=== PATIENT | female | born 1970 | race Caucasian/White ===

== ENCOUNTER 2024-09-02 14:38 | Outpatient (REF) | payer OTHER, SELFPAY ==
--- NOTE | ~2024-09-02 | XR_ITS ---
EXAMINATION: XR LUMBAR SPINE 2-3 VIEWS HISTORY: right low back pain COMPARISON: There are no prior studies for comparison. FINDINGS: AP, lateral, and coned down views of the lumbar spine are submitted. Osseous mineralization is normal. Five nonrib-bearing lumbar vertebral bodies are identified, maintaining normal height and alignment without evidence of fracture or spondylolisthesis. There is mild degenerative disc disease with disc space narrowing and osteophyte formation. The posterior elements are intact. The visualized paraspinal soft tissues are unremarkable. XR/XR lumbar spine 2-3V IMPRESSION: Mild degenerative disc disease. Electronically signed by: Michael Armstrong MD 09/02/2024 03:42 PM EDT
--- NOTE | ~2024-09-02 | US_ITS ---
EXAMINATION: US LOWER EXTREMITY VEINS LIMITED FOLLOW UP RIGHT HISTORY: RT THIGH PAIN COMPARISON: There are no prior studies for comparison. TECHNIQUE: Duplex and color Doppler sonographic examination of the deep venous system of the right lower extremity was performed. FINDINGS: The common femoral, superficial femoral, and popliteal veins are patent demonstrating normal compressibility, spontaneous flow, and augmentation. There is a normal color and spectral Doppler waveform appearance of the visualized deep venous system above the knee. The posterior tibial and peroneal veins are patent. US/US venous duplex LE RT IMPRESSION: No evidence of acute DVT in the right lower extremity. Electronically signed by: Michael Armstrong MD 09/02/2024 03:34 PM EDT
--- OUTSIDE RECORDS SUMMARY | 2024-09-02 14:49 | XMS_ITS | Encounter Summary ---
Author Organization [employer] Address [address] [facility] 7t [place] [address] Care Team Providers Care Coffee Maker Name Role Phone Amando Chapa MD Primary Care Prov ider Reason for Visit * Reason Onset Date Comments Durable Medical Equipment 04/24/2024 Encounter Details Date Type Department Care Team (Late st Contact Info) Description 04/24/2024 Telephone [facility] MEDICINE [address] [place] [address] Amando Chapa MD [address] [place] [address] Durable Medical Equipment Social History Tobacco Use Types Packs/Day Years Used Date Smoking Tobacco: Never Passive Smoke Exposure: Never Smokeless Tobacco: Never Alcohol Use Standard Drinks/Week Comments Never 0 (1 standard drink = 0.6 oz pur e alcohol) Depression Answer Date Recorded Patient Health Questionnaire-9 Score 7 08/09/2022 Housing Stability Answer Date Recorded What is your housing situation today? I have germaine foley 01/17/[address] you li ve. Do you have problems with any of the following? None of the above 01/17/2024 Food Insecurity Answer Date Recorded Within the past 12 months, y ou worried that your food would run out before you got money to buy more: Sometimes True 2023 Within the past 12 months,th e food you bought just didn't last and you didn't have enough money to get more: Sometimes True 01/17/2024 Transportation Answer Date Recorded In the past 12 months, has l ack of transportation kept you from medical appts, meetings, work or from getting things needed for daily living? No 01/17/2024 Utilities Answer Date Recorded In the past 12 months, has t he electric, gas, oil or water company threatened to shut off services in your home? No 01/17/2024 Depression Answer Date Recorded Patient Health Questionnaire-2 Score 6 08/09/2022 Internet Access Answer Date Recorded Internet Access Q1 Yes 01/17/2024 Internet Access Q2 Not on file 01/17/2024 Comments No Sex and Gender Information Value Date Recorded Sex Assigned at Female 02/12/2022 10:34 AM EDT Legal Sex Female 10:34 AM EDT Gender Identity Female 02/12/2022 10:34 AM EDT Sexual Orientation Straight 02/12/2022 10 :34 AM EDT documented as of this encounter Miscellaneous Notes * Telephone Encounter - Romulo Sabas - 04/24/2024 1:43 PM EST Tc from pt requesting Gloves Size: M documented in this encounter Plan of Treatment Upcoming Encounters Date Type Department Care Team (Late st Contact Info) Description 09/16/2024 2:30 PM EDT Clinical Support [facility] MED & PEDS [address] [place] [address] documented as of this encounter Visit Diagnoses Not on filedocumented in this encounter Additional Health Concerns Assessment Noted Time PHQ-9 Depression Total Score: 7 08/10/19 23 10:51 AM EDT documented as of this encounter Care Teams Coffee Maker Relationship Specialty Start Date End Date Amando Chapa MD [address] [place] [address] PCP - General Internal Medicine 09/08/19 documented as of this encounter
--- OUTSIDE RECORDS SUMMARY | 2024-09-02 14:49 | XMS_ITS | Encounter Summary ---
Author Organization [employer] Address [address] [facility] 7 [place] [address] Care Team Providers Care Escort Patients Name Role Phone Amando Chapa MD Primary Care Prov ider Reason for Visit * Reason Comments Med Change Request Encounter Details Date Type Department Care Team ([facility] Contact Info) Description 12/11/2022 Refill [facility] MED & PEDS [address] [place] [address] Amando Chapa MD [address] [place] [address] Social History Tobacco Use Types Packs/Day Years Used Date Smoking Tobacco: Never Passive Smoke Exposure: Never Smokeless Tobacco: Never Alcohol Use Standard Drinks/Week Comments Never 0 (1 standard drink = 0.6 oz pur e alcohol) Depression Answer Date Recorded Patient Health Questionnaire-9 Score 7 08/09/2022 Depression Answer Date Recorded Patient Health Questionnaire-2 Score 6 08/09/2022 Comments No Sex and Gender Information Value Date Recorded Sex Assigned at Female 02/12/2022 10:34 AM EDT Legal Sex Female 10:34 AM EDT Gender Identity Female 02/12/2022 10:34 AM EDT Sexual Orientation Straight 02/12/2022 10 :34 AM EDT documented as of this encounter Miscellaneous Notes * Telephone Encounter - Amando Vu MD - 12/11/2022 2:07 PM EDT done documented in this encounter Plan of Treatment Upcoming Encounters Date Type Department Care Team (Late st Contact Info) Description 09/16/2024 2:30 PM EDT Clinical Support [facility] MED & PEDS [address] [place] [address] documented as of this encounter Visit Diagnoses Not on filedocumented in this encounter Additional Health Concerns Assessment Noted Time PHQ-9 Depression Total Score: 7 08/10/19 23 10:51 AM EDT documented as of this encounter Care Teams Escort Patients Relationship Specialty Start Date End Date Amando Chapa MD [address] [place] [address] PCP - General Internal Medicine 09/08/19 documented as of this encounter
--- OUTSIDE RECORDS SUMMARY | 2024-09-02 14:49 | XMS_ITS | Encounter Summary ---
Author Organization [employer] Address [address] [facility] [address] [place] [address] Care Team Providers Care Indirect Sales Exec Name Role Phone Amando Chapa MD Primary Care Prov ider Reason for Visit * Reason Comments Med Refill Encounter Details Date Type Department Care Team ([facility] Contact Info) Description 10/15/2022 Refill [facility] CHC MED & PEDS [address] [place] [address] Amando Chapa MD [address] [place] [address] Social History Tobacco Use Types Packs/Day Years [...] Orientation Straight 02/12/2022 10 :34 AM EDT COVID-19 Exposure Response Date Recorded In the last 10 days, have yo u been in contact with someone who was confirmed or suspected to have Coronavirus/COVID-19? No / Unsure 09/25/2022 1:01 PM EDT documented as of this encounter Plan of Treatment Upcoming Encounters Date Type Department Care Team (Late st Contact Info) Description 09/16/2024 2:30 PM EDT Clinical Support [facility] CHC MED & PEDS [address] [place] [address] documented as of this encounter Visit Diagnoses Not on filedocumented in this encounter Additional Health Concerns Assessment Noted Time PHQ-9 Depression Total Score: 7 08/10/19 23 10:51 AM EDT documented as of this encounter Care Teams Indirect Sales Exec Relationship Specialty Start Date End Date Amando Chapa MD [address] [place] [address] PCP - General Internal Medicine 09/08/19 documented as of this encounter
--- OUTSIDE RECORDS SUMMARY | 2024-09-02 14:49 | XMS_ITS | Encounter Summary ---
Author Organization [employer] Address [address] [facility] [address]t [place] [address] Care Team Providers Care National Dedicated Truck Driver Name Role Phone Amando Chapa MD Primary Care Prov ider Reason for Visit * Reason Onset Date Comments Created In Error 02/13/2024 Encounter Details Date Type Department Care Team ([facility] st Contact Info) Description 02/13/2024 Telephone [facility] MEDICINE [address] [place] [address] Amando Chapa MD [address] [place] [address] Created In Error Social History Tobacco Use Types Packs/Day Years [...] AM EDT documented as of this encounter Plan of Treatment Upcoming Encounters Date Type Department Care Team (Late st Contact Info) Description 09/16/2024 2:30 PM EDT Clinical Support [facility] CHC MED & PEDS [address] [place] [address] documented as of this encounter Visit Diagnoses Not on filedocumented in this encounter Additional Health Concerns Assessment Noted Time PHQ-9 Depression Total Score: 7 08/10/19 23 10:51 AM EDT documented as of this encounter Care Teams National Dedicated Truck Driver Relationship Specialty Start Date End Date Amando Chapa MD [address] [place] [address] PCP - General Internal Medicine 09/08/19 documented as of this encounter
--- OUTSIDE RECORDS SUMMARY | 2024-09-02 14:49 | XMS_ITS | Encounter Summary ---
Author Organization [employer] Address [address] [facility] [address] [place] [address] Care Team Providers Care Sales Secretary Name Role Phone Amando Chapa MD Primary Care Prov ider Reason for Visit * Reason Onset Date Comments Med Refill 11/15/2023 Encounter Details Date Type Department Care Team (Late st Contact Info) Description 11/15/2023 Telephone [facility] MEDICINE [address] [place] [address] Amando Chapa MD [address] [place] [phone] Med Refill Social History Tobacco Use Types Packs/Day Years Used Date Smoking Tobacco: Never Passive Smoke Exposure: Never Smokeless Tobacco: Never Alcohol Use Standard Drinks/Week Comments Never 0 (1 standard drink = 0.6 oz pur e alcohol) Depression Answer Date Recorded Patient Health Questionnaire-9 Score 7 08/09/2022 Housing Stability Answer Date Recorded What is your housing situation today? I have germaine foley 01/28/[address] you li ve. Do you have problems with any of the following? None of the above 01/28/2023 Food Insecurity Answer Date Recorded Within the past 12 months, y ou worried that your food would run out before you got money to buy more: Never True 01/28/2023 Within the past 12 months,th e food you bought just didn't last and you didn't have enough money to get more: Never True Transportation Answer Date Recorded In the past 12 months, has l ack of transportation kept you from medical appts, meetings, work or from getting things needed for daily living? No 01/28/2023 Utilities Answer Date Recorded In the past 12 months, has t he electric, gas, oil or water company threatened to shut off services in your home? No 01/28/2023 Depression Answer Date Recorded Patient Health Questionnaire-2 Score 6 08/09/2022 Comments No Sex and Gender Information Value Date Recorded Sex Assigned at Female 02/12/2022 10:34 AM EDT Legal Sex Female 10:34 AM EDT Gender Identity Female 02/12/2022 10:34 AM EDT Sexual Orientation Straight 02/12/2022 10 :34 AM EDT documented as of this encounter Miscellaneous Notes * Telephone Encounter - Eduar Martinez - 11/15/2023 12:38 PM EDT Tc from patient requesting status of glucose sensors however rfp writer does not see anything on chart documented in this encounter Plan of Treatment Upcoming Encounters Date Type Department Care Team (Late st Contact Info) Description 09/16/2024 2:30 PM EDT Clinical Support [facility] MED & PEDS [address] [place] [address] documented as of this encounter Visit Diagnoses Not on filedocumented in this encounter Additional Health Concerns Assessment Noted Time PHQ-9 Depression Total Score: 7 08/10/19 23 10:51 AM EDT documented as of this encounter Care Teams Sales Secretary Relationship Specialty Start Date End Date Amando Chapa MD [address] [place] [address] PCP - General Internal Medicine 09/08/19 documented as of this encounter
--- OUTSIDE RECORDS SUMMARY | 2024-09-02 14:49 | XMS_ITS | Encounter Summary ---
Author Organization [employer] Address [address] [facility] 7 [place] [address] Care Team Providers Care Acid Purifier Name Role Phone Amando Chapa MD Primary Care Prov ider Reason for Visit * Reason Onset Date Comments Hospital Follow-up 05/11/2024 Encounter Details Date Type Department Care Team ([facility] st Contact Info) Description 05/11/2024 Telephone [facility] CHC MED & PEDS [address] [place] [address] Amando Chapa MD [address] [place] [address] Hospital Follow-up Social History Tobacco Use Types Packs/Day Years [...] encounter Miscellaneous Notes * Telephone Encounter - Venus Parra - 05/11/2024 11:30 AM EST Tc from pt requesting a HDF appt. [facility]: [facility] Date of admission: 05/09/24 Discharge date: 05/10/24 Diagnosed: asthma attack Pt also states was inform to request oxygen tanks *Send message to [place] Clinical Care Coordinators documented in this encounter Plan of Treatment Upcoming Encounters Date Type Department Care Team (Late st Contact Info) Description 09/16/2024 2:30 PM EDT Clinical Support [facility] CHC MED & PEDS [address] [place] [address] documented as of this encounter Visit Diagnoses Not on filedocumented in this encounter Additional Health Concerns Assessment Noted Time PHQ-9 Depression Total Score: 7 08/10/19 23 10:51 AM EDT documented as of this encounter Care Teams Acid Purifier Relationship Specialty Start Date End Date Amando Chapa MD [address] [place] [address] PCP - General Internal Medicine 09/08/19 documented as of this encounter
--- OUTSIDE RECORDS SUMMARY | 2024-09-02 14:49 | XMS_ITS | Encounter Summary ---
Author Organization [employer] Address [address] [facility] [address] [place] [address] Care Team Providers Care Senior Clinical Study Manager Name Role Phone Amando Chapa MD Primary Care Prov ider Encounter Details Date Type Department Care Team ([facility] st Contact Info) Description 09/28/2022 Orders Only [facility] CHC MED & PEDS [address] [place], [place] [phone] Amando Chapa MD [address] [place] [address] Type 2 diabetes mellitus without complication, with long-term current use of insulin ([facility]) Social History Tobacco Use Types Packs/Day Years [...] Description 09/16/2024 2:30 PM EDT Clinical Support [facility]C MED & PEDS [address] [place] [address] documented as of this encounter Visit Diagnoses Diagnosis Type 2 diabetes mellitus without complication, with long-term current use of insulin ([facility]) documented in this encounter Additional Health Concerns Assessment Noted Time PHQ-9 Depression Total Score: 7 08/10/19 23 10:51 AM EDT documented as of this encounter Care Teams Senior Clinical Study Manager Relationship Specialty Start Date End Date Amando Chapa MD [address] [place] [address] PCP - General Internal Medicine 09/08/19 documented as of this encounter
--- OUTSIDE RECORDS SUMMARY | 2024-09-02 14:49 | XMS_ITS | Clinical Summary ---
Author Organization [facility] Address [address] [place] [address] Phone Care Team Providers Care Verification Lead Name Role Phone Caro Amando Vu Primary Care Provide r Allergies Active Allergy Reactions Criticality Noted Date Comments Aspirin Unknown 07/30/2022 Gent Lydia-Brlnt Grn-Proflav Shortness of breath High 08/27/2022 Iodinated Contrast Media Shortness of breath High Medications acetaminophen (TYLENOL) 500 mg tablet Take 2 tablets (1,000 mg total) by mouth every 12 (twelve) hours if needed for moderate pain. 2 Active albuterol 2.5 mg /3 mL (0.083 %) nebulizer solution Take 3 mL (2.5 mg total) by nebulization every 4 (four) hours if needed for wheezing or shortness of breath. 8 Active albuterol HFA (PROAIR HFA ; PROVENTIL HFA ; VENTOLIN HFA) 90 mcg/actuation inhaler Take 2 puffs by mouth every 4 (four) hours if needed. 2 Active amLODIPine (NORVASC) 10 mg tablet Take 1 tablet (10 mg total) by mouth daily. 4 09/12/19 25 Active budesonide-form oteroL (SYMBICORT) 160-4.5 mcg/actuation inhaler Inhale 2 puffs by mouth 2 times daily. 5 05/07/19 26 Active clopidogreL (PLAVIX) 75 mg tablet Take 1 tablet (75 mg total) by mouth 1 (one) time each day. 4 Active diclofenac (VOLTAREN) 75 mg EC tablet Take 1 tablet (75 mg total) by mouth 2 (two) times a day. 5 Active dulaglutide (TRULICITY) 4.5 mg/0.5 mL pen injector injection Inject 0.5 mL (4.5 mg total) under the skin 1 (one) time per week. 4 Active empagliflozin (JARDIANCE) 25 mg tablet Take 1 tablet (25 mg total) by mouth 1 (one) time each day in the morning. 3 Active NovoLOG Flexpen U-100 Insulin 100 unit/mL (3 mL) injection pen See Instructions, Take based on sliding scale between 4- 14 units via Subcutaneous Injection 3 times a day. E11.9 Max daily dose 42 units., # 30 mL, 6 Refills, Maintenance, 01/04/23 15:50:00 EDT, Solution, [facility], Partial fill upon patie... 3 Active Lantus U-100 Insulin 100 unit/mL injection 15 Units by subdermal route at bedtime. 4 Active lisinopril (PRINIVIL,ZESTR IL) 40 mg tablet Take 1 tablet (40 mg total) by mouth daily. 4 09/12/19 25 Active metFORMIN (GLUCOPHAGE) 1,000 mg tablet Take 1 tablet (1,000 mg total) by mouth every 12 hours. 1 Active rosuvastatin (CRESTOR) 40 mg tablet Take 1 tablet (40 mg total) by mouth daily. 4 09/12/19 25 Active albuterol HFA (ProAir HFA) 90 mcg/actuation inhaler Inhale 2 puffs by mouth every 4 (four) hours if needed for wheezing or shortness of breath. 8.5 g 5 05/10/19 26 Active Active Problems Problem Noted Date Diagnosed Date Asthma exacerbation 05/09/2024 Surgical History Surgery Date Site/Laterality Comments OTHER SURGICAL HISTORY PROCEDURE: MI TOTAL ABDOMINAL HYSTERECT W/WO RMVL TUBE OVARY Medical History Medical History Date Comments Covid-19 DX:COVID-19 Chronic low back pain DX:Chronic low back pain Depression DX:Depression Diabetes ([facility] V24, [facility] V28) DX:Diabetes ([facility]) GERD (gastroesophageal reflux disease) DX:GERD (gastroesophageal reflux disease) Class 1 obesity DX:Class 1 obesi ty Severe persistent asthma ([facility] V28) DX:Severe persistent asthma Family History Medical History Relation Name Comments Asthma Daughter Asthma Father Asthma Mother Breast cancer Mother Relation Name Status Comments Daughter Father Mother Social History Tobacco Use Types Packs/Day Years Used Date Smoking Tobacco: Never Smokeless Tobacco: Never Alcohol Use Standard Drinks/Week Comments Never 0 (1 standard drink = 0.6 oz pur e alcohol) Interpersonal Safety Answer Date Record ed Physical Abuse 05/09/2024 Verbal Abuse 05/09/2024 Comments Unknown Sex and Gender Information Value Date Recorded Sex Assigned at Female 05/09/2024 1:20 PM EST Legal Sex Female 8:25 AM EST Gender Identity Female 05/09/2024 1:20 PM EST Sexual Orientation Straight 05/09/2024 1: 20 PM EST Obstetrics History Last Filed Vital Signs Vital Sign Reading Time Taken Comments Blood Pressure 148/67 05/10/2024 8:01 AM EST Pulse 111 05/10/2024 10:55 AM EST Temperature 36.7 ??C (98.1 ??F) 05/10/2024 8:01 AM ES T Respiratory Rate 20 05/10/2024 10:55 AM EST Oxygen Saturation 94% 05/10/2024 10:55 AM EST Inhaled Oxygen Concentration - - Weight 77.1 kg (170 lb) 05/09/2024 4:15 PM EST Height 160 cm (5' 3 ) 05/09/2024 4:15 PM EST Body Mass Index 30.11 05/09/2024 4:15 PM EST Plan of Treatment Health Maintenance Due Date Last Done Comments Diabetes: Annual Foot Exam 1980 Diabetes: Annual Retina Eye Exam 1980 Cervical Cancer Screening: Pap Smear 06/15/1991 Hepatitis B Vaccines (3 of 3 - 19+ 3-dose series) 03/05/2019 10/08/2018, 09/02/2018 Pneumococcal Vaccine: 50+ Years (2 of 2 - PCV) 04/16/2019 04/16/2018 Pneumococcal Vaccine: Pediatrics (0 to 5 Years) and At-Risk Patients (6 to 64 Years) (2 of 2 - PCV) 04/16/2019 04/16/2018 Zoster Vaccines (1 of 2) 2020 Colorectal Cancer Screening: Colonoscopy 03/23/2022 HIV Screening 03/23/2022 Medicare Annual Wellness Visit 03/23/2022 Social Influencers of Health Screening 03/23/2022 Depression Screening 08/10/2023 08/09/2022 Diabetes: Annual Urine Albumin-Creatinine Ratio (uACR) 08/24/2023 08/23/2022 COVID-19 Vaccine ( - season) 2023 06/01/2021, 05/11/2021 Breast Cancer Screening 08/29/2024 08/29/2022 Diabetes: Blood Sugar Control Test (HGBA1C) 09/22/2024 03/24/2024 Influenza Vaccine (Season Ended) 2024 01/29/2022, 03/31/2021, 02/24/2018 Diabetes: Annual GFR (Glomerular Filtration Rate) 05/10/2025 05/10/2024, 05/09/2024, 03/15/2022, Additional history exists Hypertension/CHF/CAD Annual BMP Blood Test 05/10/2025 05/10/2024, 05/09/2024, 03/15/2022, Additional history exists Cholesterol Screening (Lipid Panel) 08/22/2027 08/21/2022 DTaP,Tdap,and Td Vaccines (2 - Td or Tdap) 04/16/2028 04/16/2018 Hepatitis C Screening Completed 08/21/2022 HIB Vaccines Aged Out No longer eligi ble based on patient's age to complete this topic HPV Vaccines Aged Out No longer eligi ble based on patient's age to complete this topic Hepatitis A Vaccines Aged Out No long er eligible based on patient's age to complete this topic IPV Vaccines Aged Out No longer eligi ble based on patient's age to complete this topic MMR Vaccines Aged Out No longer eligi ble based on patient's age to complete this topic Meningococcal ACWY Vaccine Aged Out N o longer eligible based on patient's age to complete this topic Meningococcal B Vaccine Aged Out No l onger eligible based on patient's age to complete this topic RSV Immunization Patients Under 20 months Aged Out No longer eligible based on patient's age to complete this topic Varicella Vaccines Aged Out No longer eligible based on patient's age to complete this topic Medical Devices Implanted Type Area Reverse Unit Operator Device Identifier Shelf Expiration Date Model / Serial / Lot Device Angio-Seal Vip .035in 70cm 6fr [employer] - [id number] Implanted:11/24 (Quantity not on file) [facility] [id number] / / Procedures Procedure Name Priority Date/Time Associated Diagnosis Comments BASIC METABOLIC PANEL Routine 05/10/2024 5:49 AM EST TASNEEM SCREENING DIGITAL Routine 08/29/2022 5:33 PM EDT Encounter for screening mammogram for malignant neoplasm of breast from Last 3 Months or Most Recently Relevant to Health Maintenance Results * (ABNORMAL) Basic metabolic panel (05/10/2024 5:49 AM EST) Sodium 136 133 - 145 mmol/L LAB CHEMISTRY METHOD 05/10/2024 8:25 AM [facility] Potassium 4.0 3.5 - 5.5 mmol/L LAB CHEMISTRY METHOD 05/10/2024 8:25 AM [facility] Chloride 102 96 - 110 mmol/L LAB CHEMISTRY METHOD 05/10/2024 8:25 AM [facility] CO2 27 21 - 32 mmol/L LAB CHEMISTRY METHOD 05/10/2024 8:25 AM [facility] Anion Gap 7 3 - 11 LAB CHEMISTRY METHOD 05/10/2024 8:25 AM [facility] Glucose 244(H) 70 - 100 mg/dL LAB CHEMISTRY METHOD 05/10/2024 8:25 AM [facility] BUN 18 5 - 25 mg/dL LAB CHEMISTRY METHOD 05/10/2024 8:25 AM [facility] Creatinine 0.68 0.50 - 1.10 mg/dL LAB CHEMISTRY METHOD 05/10/2024 8:25 AM [facility] eGFR 104 >=60 mL/min/1. 73m2 LAB CHEMISTRY METHOD 05/10/2024 8:25 AM EST [facility] Comment:Calculation based on the??Chronic Kidney Disease Epidemiology Collaboration (CKD-EPI) equation refit??without adjustment for race. BUN/Creatinine Ratio 26.5 LAB CHEMISTRY METHOD 05/10/2024 8:25 AM EST [facility] Calcium 9.7 8.5 - 10.5 mg/dL LAB CHEMISTRY METHOD 05/10/2024 8:25 AM EST [facility] Blood Venous blood specimen / Unknown Venipuncture / Unknown 05/10/2024 5:49 AM EST 05/10/2024 7:02 AM EST us [facility] BLOOD ORDERABLES Final Resu lt [facility] [address] [place] [address], * TASNEEM SCREENING DIGITAL (08/29/2022 5:33 PM EDT) Anatomical Region Laterality Modality Mammography 08/29/2022 11:0 4 AM EDT Narrative 08/29/2022 5:33 PM EDT [facility] Diagnostic Imaging Department [address] [place] [address] Patient: ??YUSUF HARRELL ?/Age/Sex: 1970 - Unit#: ??[id number] ? Location/Status: ??SPDIMAM/REG CLI ? Mnemonic/Ordering Site: ??DIGSC/SPMAM Ordering Physician: ??AMANDO DIAMOND MD Tasneem Screening Digital - 08/29/22 - 1135 EXAM: [facility] Screening Digital EXAM DATE AND TIME: 08/29/2022 11:53 AM HISTORY: ??Screening. Baseline exam. Personal history of colon carcinoma. COMPARISON: ??No comparison imaging. TECHNIQUE: CC and MLO views of both breasts were obtained using full field digital mammography. Bilateral digital breast tomosynthesis was performed in the MLO projection. Computer aided detection with Chubbies Shorts 7.2-H and Swatchcloud 3D 3.1 was employed. TISSUE DENSITY: a. The breasts are almost entirely fatty. FINDINGS: A small group of microcalcifications is seen in the middle 1:00 position of the left breast. Spot compression magnification views are recommended for further assessment. No suspicious masses or areas of architectural distortion are seen. Few benign rim calcifications are noted. Vascular calcification is present. The skin is un remarkable. IMPRESSION: 1. Grouped microcalcifications in the left breast, for which additional views are recommended. The patient will be called back. 2. No mammographic evidence of malignancy is seen in the right breast. BI-RADS: ??Category 0: Incomplete - Need Additional Imaging Evaluation RECOMMENDATION(S): 1: Special mammographic view(s) needed LEFT [id number], [id number] 3340F, 7025F Dictating Physician: ??CAROLYN BAEZ MD Electronically Signed by: ??CAROLYN BAEZ MD Dic Date/Time: ??08/29/22 1731 Sign date/Time: ??08/29/22 1733 Procedure Note Carolyn Baez MD - 05/17/2023 [facility] Diagnostic Imaging Department [address] [place] [id number] Patient: YUSUF HARRELLO.B./Age/Sex: 1970 - 52 - F Unit#: [id number] Location/Status: SPDIMAM/REG CLI Mnemonic/Ordering Site: [facility] Ordering Physician: AMANDO DIAMOND MD [facility] Screening Digital - 08/29/22 - 1135 EXAM: [facility] Screening Digital EXAM DATE AND TIME: 08/29/2022 11:53 AM HISTORY: Screening. Baseline exam. Personal history of colon carcinoma. COMPARISON: No comparison imaging. TECHNIQUE: CC and MLO views of both breasts were obtained using fullfield digital mammography. Bilateral digital breast tomosynthesis was performedin the MLO projection. Computer aided detection with Chubbies Shorts 7.2-H andSwatchcloud 3D 3.1 was employed. TISSUE DENSITY: a. The breasts are almost entirely fatty. FINDINGS: A small group of microcalcifications is seen in the middle 1:00 positionof the left breast. Spot compression magnification views are recommended forfurther assessment. No suspicious masses or areas of architectural distortion are seen. Fewbenign rim calcifications are noted. Vascular calcification is present. The skinis un remarkable. IMPRESSION: 1. Grouped microcalcifications in the left breast, for which additionalviews are recommended. The patient will be called back. 2. No mammographic evidence of malignancy is seen in the right breast. BI-RADS: Category 0: Incomplete - Need Additional Imaging Evaluation RECOMMENDATION(S): 1: Special mammographic view(s) needed LEFT [id number], [id number] 3340F, 7025F Dictating Physician: CAROLYN BAEZ MD Electronically Signed by: CAROLYN BAEZ MD Dic Date/Time: 08/29/22 1731 Sign date/Time: 08/29/22 1733 Amando Vu IMG BI PROCEDURES Fin al Result from Last 3 Months or Most Recently Relevant to Health Maintenance Insurance MEDICARE Member Subscriber Plan / Payer (Ef fective 2022-Present) Name:Yusuf Harrell Relation to Subscriber:Self Name:Yusuf Harrell Payer ID:[id number] Group ID:[id number] Type:Not on file Address: [place] [address] [place] [phone] Advance Directives Documents on File Type Date Recorded Patient Cognos Analyst Expl [facility] Health Care Decision (hx) 06/05/2023 AD PRABHAKAR DIRECTIVE * Full Code - Confirmed (Latest Code Status on File) Date Activated Date Inactivated Comments 05/09/2024 6:59 PM 05/10/2024 3:[address] atus was ascertained in the following way: Code status discussion: discussion with patient To update the patient's code status, place a code status order. Do not modify or discontinue any currently active code status orders. * Full Code - Default Date Activated Date Inactivated Comments 05/09/2024 4:32 PM 05/09/2024 6:59 PM This is orde r is used when code status has not been discussed with the patient, or code status is otherwise unknown/unconfirmed To update the patient's code status, place a code status order. Do not modify or discontinue any currently active code status orders. Care Teams Verification Lead Relationship Specialty Start Date End Date Amando Diamond [address], [place] PCP - General Internal Medicine 05/04/21
--- OUTSIDE RECORDS SUMMARY | 2024-09-02 14:49 | XMS_ITS | Encounter Summary ---
Author Organization [employer] Address [address] [facility] 7 [place] [address] Care Team Providers Care Senior Marketing Analyst Name Role Phone Amando Chapa MD Primary Care Prov ider Reason for Visit * Reason Comments Med Refill Encounter Details Date Type Department Care Team ([facility] st Contact Info) Description 12/12/2023 Refill [facility] CH[facility] MED & PEDS [address] [place] [address] Amando Chapa MD [address] [place] [address] Acute pain of left knee Social History Tobacco Use Types Packs/Day Years [...] Description 09/16/2024 2:30 PM EDT Clinical Support [facility] MED & PEDS [address] [place] [address] documented as of this encounter Visit Diagnoses Diagnosis Acute pain of left knee documented in this encounter Additional Health Concerns Assessment Noted Time PHQ-9 Depression Total Score: 7 08/10/19 23 10:51 AM EDT documented as of this encounter Care Teams Senior Marketing Analyst Relationship Specialty Start Date End Date Amando Chapa MD [address] [place] [address] PCP - General Internal Medicine 09/08/19 documented as of this encounter
--- OUTSIDE RECORDS SUMMARY | 2024-09-02 14:49 | XMS_ITS | Encounter Summary ---
Author Organization [employer] Address [address] [facility] 7t [place] [address] Care Team Providers Care Supervisor Drying Name Role Phone Amando Chapa MD Primary Care Prov ider Encounter Details Date Type Department Care Team (Late Contact Info) Description 09/01/2022 Orders Only [facility] CHC MED & PEDS [address] [place], [place] [phone] Amando Chapa MD [address] [place] [address] Social History Tobacco Use Types Packs/Day Years Used Date Smoking Tobacco: Never Passive Smoke Exposure: Never Smokeless Tobacco: Never Alcohol Use Standard Drinks/Week Comments Never 0 (1 standard drink = 0.6 oz pur e alcohol) Depression Answer Date Recorded Patient Health Questionnaire-9 Score 7 08/09/2022 Depression Answer Date Recorded Patient Health Questionnaire-2 Score 6 08/09/2022 Comments Unknown Sex and Gender Information Value [...] suspected to have Coronavirus/COVID-19? No / Unsure 08/27/2022 10:17 AM EDT documented as of this encounter Plan of Treatment Upcoming Encounters Date Type Department Care Team (Late Contact Info) Description 09/16/2024 2:30 PM EDT Clinical Support [facility] CHC MED & PEDS [address] [place] [address] documented as of this encounter Visit Diagnoses Not on filedocumented in this encounter Additional Health Concerns Assessment Noted Time PHQ-9 Depression Total Score: 7 08/10/19 23 10:51 AM EDT documented as of this encounter Care Teams Supervisor Drying Relationship Specialty Start Date End Date Amando Chapa MD [address] [place] [address] PCP - General Internal Medicine 09/08/19 documented as of this encounter
--- OUTSIDE RECORDS SUMMARY | 2024-09-02 14:49 | XMS_ITS | Encounter Summary ---
Author Organization [employer] Address [address] [place] [address] 7 [place] [address] Care Team Providers Care Ear Flap Binder Name Role Phone Amando Chapa MD Primary Care Prov ider Reason for Visit * Reason Comments Med Change Request Encounter Details Date Type Department Care Team ([facility] Contact Info) Description 12/11/2022 Refill [facility] CH[facility] MED & PEDS [address] [place] [address] Amando Chapa MD [address] [place] [address] Social History Tobacco Use Types Packs/Day Years [...] Upcoming Encounters Date Type Department Care Team ([facility] Contact Info) Description 09/16/2024 2:30 PM EDT Clinical Support [facility] CHC MED & PEDS [address] [place] [address] documented as of this encounter Visit Diagnoses Not on filedocumented in this encounter Additional Health Concerns Assessment Noted Time PHQ-9 Depression Total Score: 7 08/10/19 23 10:51 AM EDT documented as of this encounter Care Teams Ear Flap Binder Relationship Specialty Start Date End Date Amando Chapa MD [address] [place] [address] PCP - General Internal Medicine 09/08/19 documented as of this encounter
--- OUTSIDE RECORDS SUMMARY | 2024-09-02 14:49 | XMS_ITS | Encounter Summary ---
Author Organization [employer] Address [address] [facility] 7 [place] [address] Care Team Providers Care Tube Builder Name Role Phone Amando Chapa MD Primary Care Prov ider Reason for Visit * Reason Onset Date Comments Med Refill 12/21/2022 Encounter Details Date Type Department Care Team ([facility] st Contact Info) Description 12/21/2022 Telephone [facility] CH[facility] MED & PEDS [address] [place] [address] Amando Chapa MD [address] [place] [address] Med Refill Social History Tobacco Use Types [...] encounter Miscellaneous Notes * Telephone Encounter - Charisma Ortez LPN - 12/21/2022 10:16 AM EDT Medication was sent to [id number] on 10/26/22 with 11 refills. * Telephone Encounter - Venus Aida - 12/21/2022 10:02 AM EDT Tc from [facility] pharmacy requesting med refill for diclofenac (Voltaren) 75 MG EC tablet. documented in this encounter Plan of Treatment Upcoming Encounters Date Type Department Care Team (Late st Contact Info) Description 09/16/2024 2:30 PM EDT Clinical Support [facility] MED & PEDS [address] [place] [address] documented as of this encounter Visit Diagnoses Not on filedocumented in this encounter Additional Health Concerns Assessment Noted Time PHQ-9 Depression Total Score: 7 08/10/19 23 10:51 AM EDT documented as of this encounter Care Teams Tube Builder Relationship Specialty Start Date End Date Amando Chapa MD [address] [place] [address] PCP - General Internal Medicine 09/08/19 documented as of this encounter
--- OUTSIDE RECORDS SUMMARY | 2024-09-02 14:49 | XMS_ITS | Encounter Summary ---
Author Organization [email or web address] Address [address] [facility] 7t [place] [address] Care Team Providers Care Biological Sciences Instructor Name Role Phone Amando Chapa MD Primary Care Prov ider Encounter Details Date Type Department Care Team (Late st Contact Info) Description 08/26/2023 Orders Only [facility] CH[facility] MED & PEDS [address] [place], [place] [phone] Amando Chapa MD [address] [place] [address] Social History Tobacco Use Types Packs/Day Years [...] Clinical Support [facility] CHC MED & PEDS [address] [place] [address] documented as of this encounter Visit Diagnoses Not on filedocumented in this encounter Additional Health Concerns Assessment Noted Time PHQ-9 Depression Total Score: 7 08/10/19 23 10:51 AM EDT documented as of this encounter Care Teams Biological Sciences Instructor Relationship Specialty Start Date End Date Amando Chapa MD [address] [place] [address] PCP - General Internal Medicine 09/08/19 documented as of this encounter
--- OUTSIDE RECORDS SUMMARY | 2024-09-02 14:49 | XMS_ITS | Encounter Summary ---
Author Organization [employer] Address [address] [facility] 7t [place] [address] Care Team Providers Care Manager Administrative Name Role Phone Amando Chapa MD Primary Care Prov ider Encounter Details Date Type Department Care Team (Latest Contact Info) Description 09/02/2024 Travel Social History Tobacco Use Types Packs/Day Years [...] Description 09/16/2024 2:30 PM EDT Clinical Support [facility] MED & PEDS [address] [place] [address] documented as of this encounter Visit Diagnoses Not on filedocumented in this encounter Additional Health Concerns Assessment Noted Time PHQ-9 Depression Total Score: 7 08/10/19 23 10:51 AM EDT documented as of this encounter Care Teams Manager Administrative Relationship Specialty Start Date End Date CaroAmando Yang MD [address] [place] [address] PCP - General Internal Medicine 09/08/19 documented as of this encounter
--- OUTSIDE RECORDS SUMMARY | 2024-09-02 14:49 | XMS_ITS | Encounter Summary ---
Author Organization [email or web address] Address [address] [facility] 7 [place] [address] Care Team Providers Care Animal Biologist Name Role Phone Amando Chapa MD Primary Care Prov ider Reason for Visit * Reason Onset Date Comments Med Refill 11/29/2022 Encounter Details Date Type Department Care Team ([facility] st Contact Info) Description 11/29/2022 Telephone [facility] CHC MED & PEDS [address] [place] [address] Amando Chapa MD [address] [place] [address] Med Refill Social History Tobacco Use Types [...] Telephone Encounter - Charisma Ortez LPN - 11/29/2022 1:23 PM EDT Pen needles were sent to [facility] on 09/28/22 #100 with 11 refills. * Telephone Encounter - Xenia Alejandro - 11/29/2022 1:15 PM EDT Tc from pt requesting medication refill on insulin pen needle (BD Pen Needle Lauren U/F) 32G x 4 mm misc to be sent to [facility] - [place], [place] - [address] documented in this encounter Plan of Treatment Upcoming Encounters Date Type Department Care Team (Late st Contact Info) Description 09/16/2024 2:30 PM EDT Clinical Support [facility] CHC MED & PEDS [address] [place] [address] documented as of this encounter Visit Diagnoses Not on filedocumented in this encounter Additional Health Concerns Assessment Noted Time PHQ-9 Depression Total Score: 7 08/10/19 23 10:51 AM EDT documented as of this encounter Care Teams Animal Biologist Relationship Specialty Start Date End Date Amando Chapa MD [address] [place] [address] PCP - General Internal Medicine 09/08/19 documented as of this encounter
--- OUTSIDE RECORDS SUMMARY | 2024-09-02 14:49 | XMS_ITS | Encounter Summary ---
Author Organization [employer] Address [address] [facility] 7 [place] [address] Care Team Providers Care Oven Worker Name Role Phone Amando Chapa MD Primary Care Prov ider Reason for Visit * Reason Comments Med Refill Encounter Details Date Type Department Care Team ([facility] Contact Info) Description 08/06/2024 Refill [facility] MED & PEDS [address] [place] [address] Amando Chapa MD [address] [place] [address] Social History Tobacco Use Types Packs/Day Years [...] Upcoming Encounters Date Type Department Care Team ([facility] st Contact Info) Description 09/16/2024 2:30 PM EDT Clinical Support [facility] MED & PEDS [address] [place] [address] documented as of this encounter Visit Diagnoses Not on filedocumented in this encounter Additional Health Concerns Assessment Noted Time PHQ-9 Depression Total Score: 7 08/10/19 23 10:51 AM EDT documented as of this encounter Care Teams Oven Worker Relationship Specialty Start Date End Date Amando Chapa MD [address] [place] [address] PCP - General Internal Medicine 09/08/19 documented as of this encounter
--- OUTSIDE RECORDS SUMMARY | 2024-09-02 14:49 | XMS_ITS | Encounter Summary ---
Author Organization [employer] Address [address] [place] [address] 7t [place] [address] Care Team Providers Care Actuarial Mathematician Name Role Phone Amando Chapa MD Primary Care Prov ider Reason for Referral * Imaging (STAT) - Pending Review Specialty Diagnoses / Procedures Referred By Contac t Referred To Contact Cardiology Diagnoses Right thigh pain Procedures Vascular US lower extremity venous duplex right Maximiliano Fields MD [address] [place] [address] Phone: tel: fax: [address] Phone: tel: fax: Referral ID Status Reason Start Date Expiration Date Visits Requested Visits Authorized [id number] Pending Review Perform Procedure 09/02/2024 09/02/2025 1 1 Reason for Visit * Reason Comments Leg Pain Encounter Details Date Type Department Care Team (Late st Contact Info) Description 09/02/2024 11:00 AM EDT Office Visit [facility] [address] [place] [address] [phone] Maxmiiliano Fields MD [address] [place] [address] [phone] Acute right-sided low back pain with right-sided sciatica (Primary Dx); Right thigh pain; Hypertension, unspecified type Social History Tobacco Use Types Packs/Day Years [...] AM EDT documented as of this encounter Last Filed Vital Signs Vital Sign Reading Time Taken Comments Blood Pressure 146/92 09/02/2024 11:31 AM EDT Pulse 79 09/02/2024 11:31 AM EDT Temperature 36.6 ??C (97.8 ??F) 09/02/2024 11:31 AM E DT Respiratory Rate 18 09/02/2024 11:31 AM EDT Oxygen Saturation 97% 09/02/2024 11:31 AM EDT Inhaled Oxygen Concentration - - Weight 74.1 kg (163 lb 6.4 oz) 09/02/2024 11:31 AM EDT Height - - Body Mass Index 29.89 05/15/2024 9:14 AM EST documented in this encounter Progress Notes * Maximiliano Fields MD - 09/02/2024 11:00 AM EDT Subjective Patient ID: Deborah Baumann is a 54 y.o. female. Scale Adjuster: daughter HPI 1 week ago had onset of pain in right lower back that radiates down right anterior thigh, similar to previous sciatic nerve pain in CT in past. Pain is worse with ambulation. Ibuprofen has helped in past. Tylenol never helped. Has not tried any pain meds recently. Heat helps. Lives with daughter. LMP=years ago. Not employed. Never smoked. Patient Active Problem List Diagnosis Date Noted Open angle with borderline findings, low risk 07/24/2023 Snoring 06/24/2023 Primary central sleep apnea 06/24/2023 Screening for colon cancer 05/06/2023 Class 1 obesity 10/26/2022 Disease due to severe acute respiratory syndrome coronavirus 2 (SARS-CoV-2) 10/26/2022 Pulmonary nodule 10/26/2022 CAD (coronary artery disease) 08/09/2022 Diabetes (CMS/HCC) 08/09/2022 Cerebrovascular accident (CVA) due to stenosis of right vertebral artery (CMS/HCC) 03/02/2021 History of hysterectomy for benign disease 09/02/2018 Severe persistent asthma 09/02/2018 Chronic back pain 04/16/2018 Hypertension 04/16/2018 Gastroesophageal reflux disease 04/16/2018 Hyperlipidemia 04/16/2018 Mood disorder (CMS/HCC) 04/16/2018 Atypical chest pain 04/16/2018 The following portions of the chart were reviewed this encounter and updated as appropriate: Tobacco Allergies Meds Problems Med Hx Surg Hx Fam Hx Review of Systems Constitutional: Negative for fever. Respiratory: Negative for shortness of breath. Cardiovascular: Negative for chest pain. Gastrointestinal: Negative for abdominal pain. Musculoskeletal: Positive for back pain. Skin: Negative for rash. Neurological: Negative for headaches. Objective Physical Exam Constitutional: Appearance: Normal appearance. HENT: Nose: Nose normal. Mouth/Throat: Mouth: Mucous membranes are moist. Pharynx: Oropharynx is clear. Eyes: Conjunctiva/sclera: Conjunctivae normal. Pupils: Pupils are equal, round, and reactive to light. Cardiovascular: Rate and Rhythm: Normal rate and regular rhythm. Pulses: Dorsalis pedis pulses are 2+ on the right side. Heart sounds: No murmur heard. Pulmonary: Effort: Pulmonary effort is normal. Breath sounds: Normal breath sounds. Musculoskeletal: General: Normal range of motion. Cervical back: No tenderness. Comments: Tenderness over right lower lumbar area. Tenderness over the right anterior thigh. No swelling noted. Skin: Findings: No rash. Neurological: Mental Status: She is alert. Sensory: Sensation is intact. Motor: Motor function is intact. Gait: Gait is intact. Comments: Normal dorsi and plantarflexion of right foot and great toe against resistance. Psychiatric: Mood and Affect: Mood normal. Behavior: Behavior normal. Procedures Assessment/Plan Diagnoses and all orders for this visit: Acute right-sided low back pain with right-sided sciatica Prescribed ibuprofen. Patient declined referral to physical therapy. X-rays of lumbar spine ordered. Will call patient with the results. Return to clinic if not improving - XR Lumbar Spine 2-3 Views; Future Right thigh pain Presumptive sciatica, but because of tenderness stat venous Doppler ultrasound of right lower extremity is ordered. Return to clinic if not improving - Vascular US lower extremity venous duplex right; Future Hypertension, unspecified type Has home BP monitor. Reviewed BP parameters, given written BP log that includes BP parameters, to keep daily. RN BP appointment scheduled. Advised to bring BP log to visit. Other orders - ibuprofen 400 MG tablet; Take 1 tablet (400 mg) by mouth every 6 (six) hours if needed for moderate pain or fever for up to 30 doses. documented in this encounter Plan of Treatment Upcoming Encounters Date Type Department Care Team (Late st Contact Info) Description 09/16/2024 2:30 PM EDT Clinical Support [facility] [address] [place] [address] Scheduled Orders Name Type Priority Associated Diagnoses Orde r Schedule XR Lumbar Spine 2-3 Views Imaging Routine Acute right-sided low back pain with right-sided sciatica Expected: 09/02/2024, Expires: 09/02/2025 documented as of this encounter Visit Diagnoses Diagnosis Acute right-sided low back pain with right-sided sciatica- Primary Right thigh pain Pain in soft tissues of limb Hypertension, unspecified type documented in this encounter Additional Health Concerns Assessment Noted Time PHQ-9 Depression Total Score: 7 08/10/19 23 10:51 AM EDT documented as of this encounter Care Teams Actuarial Mathematician Relationship Specialty Start Date End Date Amando Chapa MD [address] [place] [address] PCP - General Internal Medicine 09/08/19 documented as of this encounter
--- OUTSIDE RECORDS SUMMARY | 2024-09-02 14:49 | XMS_ITS | Data Portability ---
Author Organization [facility] Address [address] [place] [id number] Care Team Providers Care Roller Setter Name Role Phone [facility] Referring Provider Assessment Encounter Date Assessment Date Assessment LastModified by Organization Details LastModified Time 11/06/2022 11/06/2022 service called for L knee pain found 52 tracy with chronic b/l knee pain usually ambulates with walker underwent PT 3d prior producingin worsening of L knee pain resulting in fall no head strike, able bear weight with assistance pain sharp stable over 3d no OTC medications attempted until today, pt took naproxen OTC approx 1 hr prior to visit VSS reported exam L knee no swollen, no redness, medial joint tenderness #L Knee pain most likely acute on chronic OA, precipitated by increased use in PT no e/o new instability -short course PO ibu -return to primary team -notify service if weorsning or no improvemnt afer 5d vkudesia Not available 11/06/2022 16:39:53 Plan of Treatment Reminders Order Date Submit Date Provider Last Modified By Organization Details Last Modified Time Details Appointments None recorded. Lab None recorded. Referral None recorded. Procedures None recorded. Surgeries None recorded. Imaging None recorded. Medication Orders ibuprofen 800 mg tablet 2022 023 [facility], [address] [facility] [address], [place], [id number], 16:40:54 Patient TargetsNo targets recorded. Patient InstructionsNo instructions recorded. Reason for Referral None Reported. Medical Equipment None Reported. Medications Name Sig Start Date Stop Date Status Note LastModified by Organization Details LastModified Time comfrt touch pad alc prep eaches USE BY TO SKIN ROUTE 2 TIMES EVERY DAY active Not Available Not Available No t Available comfrt touch pad alc prep active Not Available Not Available Not Available verapamil ER (SR) 120 mg tablet,exten ded release TAKE 1 TABLET BY ORAL ROUTE 2 TIMES EVERY DAY WITH FOOD active Not Available Not Available No t Available atorvastatin 80 mg tablet TAKE 1 TABLET BY ORAL ROUTE EVERY DAY active Not Available Not Available No t Available enalapril maleate 10 mg tablet TAKE 1 TABLET BY MOUTH TWICE DAILY active Not Available Not Available No t Available albuterol sulfate 2.5 mg/3 mL (0.083 %) solution for nebulization active Not Available Not Available Not Available ibuprofen 800 mg tablet Take 1 tablet 3 times a day by oral route as needed for 10 days. active Not Available Not Available No t Available fluconazole 150 mg tablet TAKE ONE TABLET ONCE active Not Available Not Available Not Available Lantus U-100 Insulin 100 unit/mL subcutaneous solution active Not Available Not Available Not Available clopidogrel 75 mg tablet TAKE 1 TABLET (75 MG) BY MOUTH IN THE MORNING. active Not Available Not Available No t Available chlorthalido ne 25 mg tablet TAKE 1 TABLET BY ORAL ROUTE EVERY DAY active Not Available Not Available No t Available amlodipine 5 mg tablet TAKE 1 TABLET BY MOUTH DAILY active Not Available Not Available Not Available aspirin 81 mg tablet,delay ed release TAKE 1 TABLET BY ORAL ROUTE EVERY DAY active Not Available Not Available No t Available acetaminophe n 500 mg tablet TAKE 2 TABLETS BY MOUTH THREE TIMES DAILY NEEDED FOR BREAKTHROUG H PAIN active Not Available Not Available No t Available amlodipine 10 mg tablet active Not Available Not Available Not Available metformin 1,000 mg tablet TAKE 1 TABLET BY ORAL ROUTE 2 TIMES EVERY DAY WITH MORNING AND EVENING MEALS active Not Available Not Available No t Available diclofenac potassium 50 mg tablet TAKE ONE TABLET THREE TIMES DAILY active Not Available Not Available No t Available nitroglyceri n 0.[address] 1 TABLET UNDER THE TONGUE EVERY 5 MINUTES NEEDED (EVERY 5 MINUTES NEEDED FOR CHEST PAIN. IF YOU NEED 3 TABS, CALL 911). active Not Available Not Available N ot Available aspirin 81 mg chewable tablet active Not Available Not Available Not Available montelukast 10 mg tablet TAKE 1 TABLET BY MOUTH DAILY active Not Available Not Available Not Available hydrochlorot hiazide 25 mg tablet TAKE 1 TABLET BY MOUTH EVERY DAY active Not Available Not Available No t Available levofloxacin 750 mg tablet TAKE 1 TABLET BY MOUTH DAILY active Not Available Not Available Not Available albuterol sulfate HFA 90 mcg/actuatio n aerosol inhaler active Not Available Not Available Not Available lisinopril 40 mg tablet active Not Available Not Available Not Available rosuvastatin 40 mg tablet active Not Available Not Available Not Available budesonide-f ormoterol HFA 160 mcg-4.5 mcg/actuatio n aerosol inhaler active Not Available Not Available Not Available blood pressure test kit-large cuff Check blood pressure on arm as directed EVERY MORNING active Not Available Not Available No t Available BD Ultra-Fine Lauren Pen Needle 32 gauge x 5/32 USE TO INJECT TWICE DAILY active Not Available Not Available Not Available OneTouch Verio test strips USE DIRECTED TO TEST FOUR TIMES DAILY active Not Available Not Available Not Available Comfort EZ Pen Jackson 33 gauge x 3/16 USE DIRECTED TWICE DAILY active Not Available Not Available Not Available Jardiance 25 mg tablet active Not Available Not Available No t Available Novolin N FlexPen 100 unit/mL (3 mL) subcutaneous insulin pen INJECT 35 UNITS INTO THE SKIN TWICE DAILY active Not Available Not Available Not Available Trulicity 4.5 mg/0.5 mL subcutaneous pen injector active Not Available Not Available Not Available Comfort Touch Pen Needle 31 gauge x 3/16 USE TWICE DAILY active Not Available Not Available No t Available Vitals Date Recorded Heart rate Oxygen saturation Oxygen saturation in Arterial blood by Pulse oximetry Body temperature Respiratory rate Systolic blood pressure Diastolic blood pressure Provider Name and Address Organization Details Last Updated DateTime 3 71 /min 97 % 97 % 97.8 [degF] 18 /min 156 mm[Hg] 90 mm[Hg] Not Available [employer] - production 3 16:22:57 Social History None recorded. Functional Status None recorded. Mental Status None recorded. Family History Nothing Reported. Medical History No medical history recorded. Gynecological HistoryNo gynecological history recorded. Obstetrics History GPAL:G 0 P 0 0 0 0 Past Encounters Encounter ID Performer Location Encounter Start Date Encounter Closed Date Diagnosis/Indication Diagnosis SNOMED-CT Code Diagnosis ICD10 Code Diagnosis Note [id number] Neda Hsieh MD [facility] [address] [place] [address] 11/06/2022 16:22:55 11/07/2022 11:25:50 Pain of left knee joint [id number] 17944 M25.562 Health Concerns Section Related Observation LastModified by Organization Detai ls LastModified Time None Recorded Concern Status LastModified by Organization Details LastModified Time None Recorded Advance Directives Directive None Recorded Payers Insurance Date Sequence Insurance Name Policy Number Policy Marie Covered Member ID Marie Member ID Guarantor Name 09/02/2024 1 [facility] - DOS ON OR AFTER 2022 - DUAL ELIGIBLE - [employer] AND ONE CARE (MEDICARE REPLACEMENT/ADV ANTAGE - HMO) Deborah Baumann [id number] Deborah Baumann Notes Date Note Type Note Provider Name and Address Organization Details Recorded Time 11/06/2022 text/html HPI: HX CVA 02/2021 Patient reports falling on Saturday due to pain of left leg. Pain is left leg hip and down below the knee. Second fall this month. had xrays previously at [facility] on 10/24/22 records not available at time of call. .................. .................. .................. .................. .................. .................. .................. ............... CRC Nursing Assessment: Comments: CRC RN did not require any additional information to process this visit. Neda Hsieh MD [address] [place] [address],[address], [place], [phone], [facility] [employer] [employer] 11/06/2022 16:40:25 OBGyn Episode No OBEpisode recorded.
--- OUTSIDE RECORDS SUMMARY | 2024-09-02 14:49 | XMS_ITS | Encounter Summary ---
Author Organization [employer] Address [address] [facility] 7 [place] [address] Care Team Providers Care Food Cooking Machine Operator Name Role Phone Amando Chapa MD Primary Care Prov ider Reason for Visit * Reason Comments Med Refill Encounter Details Date Type Department Care Team ([facility] Contact Info) Description 10/09/2023 Refill [facility] MED & PEDS [address] [place] [address] Amando Chapa MD [address] [place] [address] Primary hypertension Social History Tobacco Use Types Packs/Day Years [...] Description 09/16/2024 2:30 PM EDT Clinical Support [facility] MED & PEDS [address] [place] [address] documented as of this encounter Visit Diagnoses Diagnosis Primary hypertension Unspecified essential hypertension documented in this encounter Additional Health Concerns Assessment Noted Time PHQ-9 Depression Total Score: 7 08/10/19 23 10:51 AM EDT documented as of this encounter Care Teams Food Cooking Machine Operator Relationship Specialty Start Date End Date Amando Chapa MD [address] [place] [address] PCP - General Internal Medicine 09/08/19 documented as of this encounter
--- OUTSIDE RECORDS SUMMARY | 2024-09-02 14:49 | XMS_ITS | Encounter Summary ---
Author Organization [employer] Address [address] [facility] 7t [place] [address] Care Team Providers Care Outside Food Server Name Role Phone Amando Chapa MD Primary Care Prov ider Reason for Visit * Reason Onset Date Comments Durable Medical Equipment 12/24/2023 Encounter Details Date Type Department Care Team (Late st Contact Info) Description 12/24/2023 Telephone [facility] MEDICINE [address] [place] [address] Amando Chapa MD [address] [place] [address] Durable Medical Equipment Social History Tobacco Use [...] encounter Miscellaneous Notes * Telephone Encounter - Denise Camarillo LPN - 12/26/2023 12:01 PM EDT Please review message below. I will need documentation on incontinent supply as for the CPAP on therecent document there is no current H20 pressure please advise. Thank you TC from pt requesting Adults diapers ( size M) Wipes Bed pads CPAP machine( has not received it yet, due to forms not being filled out accurately ) Pt also requesting a glucose sensor. She hasn't had one in over 2 months and has been utilizing a friends to check her sugar levels. * Telephone Encounter - Romulo Obregon - 12/24/2023 12:45 PM EDT TC from pt requesting Adults diapers ( size M) Wipes Bed pads CPAP machine( has not received it yet, due to forms not being filled out accurately ) Pt also requesting a glucose sensor. She hasn't had one in over 2 months and has been utilizing a friends to check her sugar levels. documented in this encounter Plan of Treatment Upcoming Encounters Date Type Department Care Team (Late st Contact Info) Description 09/16/2024 2:30 PM EDT Clinical Support [facility] MED & PED[facility] [address] [place] [address] documented as of this encounter Visit Diagnoses Not on filedocumented in this encounter Additional Health Concerns Assessment Noted Time PHQ-9 Depression Total Score: 7 08/10/19 23 10:51 AM EDT documented as of this encounter Care Teams Outside Food Server Relationship Specialty Start Date End Date Amando Chapa MD [address] [place] [address] PCP - General Internal Medicine 09/08/19 documented as of this encounter
--- OUTSIDE RECORDS SUMMARY | 2024-09-02 14:49 | XMS_ITS | Encounter Summary ---
Author Organization [employer] Address [address] [facility] 7t [place] [address] Care Team Providers Care Meter Engineer Name Role Phone Amando Chapa MD Primary Care Prov ider Encounter Details Date Type Department Care Team (Late st Contact Info) Description 05/11/2024 Orders Only [facility] MED & PEDS [address] [place] [address] ProviderCharlotte MD Social History Tobacco Use Types Packs/Day Years Used Date Smoking Tobacco: Never Passive Smoke Exposure: Never Smokeless Tobacco: Never Alcohol Use Standard Drinks/Week Comments Never 0 (1 standard drink = 0.6 oz pur e alcohol) Depression Answer Date Recorded Patient Health Questionnaire-9 Score 7 08/09/2022 Housing Stability Answer Date Recorded What is your housing situation today? I have germaineivana foley 01/17/[address] you [...] Upcoming Encounters Date Type Department Care Team ([facility] st Contact Info) Description 09/16/2024 2:30 PM EDT Clinical Support [facility] MED & PEDS [address] [place] [address] documented as of this encounter Procedures Procedure Name Priority Date/Time Associated Diagnosis Comments ECG 12-LEAD Routine 05/09/2024 1:10 PM EST documented in this encounter Results * ECG 12 lead (05/09/2024 1:10 PM EST) us Historical Provider ECG ORDERABLES Final Res ult documented in this encounter Visit Diagnoses Not on filedocumented in this encounter Additional Health Concerns Assessment Noted Time PHQ-9 Depression Total Score: 7 08/10/19 23 10:51 AM EDT documented as of this encounter Care Teams Meter Engineer Relationship Specialty Start Date End Date Amando hCapa MD [address] [place] [address] PCP - General Internal Medicine 09/08/19 documented as of this encounter
--- OUTSIDE RECORDS SUMMARY | 2024-09-02 14:49 | XMS_ITS | Encounter Summary ---
Author Organization [employer] Address [address] [facility] 7t [place] [address] Care Team Providers Care Yard Jockey Name Role Phone Amando Chapa MD Primary Care Prov ider Reason for Visit * Reason Onset Date Comments Med Refill 02/14/2024 Encounter Details Date Type Department Care Team (Late st Contact Info) Description 02/14/2024 Telephone [facility] MEDICINE [address] [place] [address] Amando Chapa MD [address] [place] [phone] Med Refill Social History Tobacco Use Types [...] Telephone Encounter - Charisma Ortez LPN - 02/14/2024 10:32 AM EDT Medication pended to PCP. * Telephone Encounter - Ever Norwood - 02/14/2024 9:55 AM EDT TC from pt requesting medication refill. Medications needing refill: albuterol (2.5 MG/3ML) 0.083% nebulizer solution albuterol 108 (90 Base) MCG/ACT inhaler budesonide-formoterol (Symbicort) 160-4.5 MCG/ACT inhaler To be sent to: budesonide-formoterol (Symbicort) 160-4.5 MCG/ACT inhaler documented in this encounter Plan of Treatment Upcoming Encounters Date Type Department Care Team (Late st Contact Info) Description 09/16/2024 2:30 PM EDT Clinical Support [facility] MED & PEDS [address] [place] [address] documented as of this encounter Visit Diagnoses Not on filedocumented in this encounter Additional Health Concerns Assessment Noted Time PHQ-9 Depression Total Score: 7 08/10/19 23 10:51 AM EDT documented as of this encounter Care Teams Yard Jockey Relationship Specialty Start Date End Date CaroAmando Yang MD [address] [place] [address] PCP - General Internal Medicine 09/08/19 documented as of this encounter
--- OUTSIDE RECORDS SUMMARY | 2024-09-02 14:49 | XMS_ITS | Clinical Summary ---
Author Organization [employer] Address [address] [place] [address] 7[address] [place] [address] Care Team Providers Care Retail Product Demo Specialist Name Role Phone Amando Chapa MD Primary Care Prov ider Allergies Active Allergy Reactions Criticality Noted Date Comments Triple Dye Shortness of breath High 08/27/2022 Medications Blood Pressure kit 1 kit in the morning. 1 kit 023 Active montelukast (Singulair) 10 MG tablet Take 1 tablet (10 mg) by mouth in the morning. 30 tablet 023 Active clindamycin (Clindagel) 1 % gel Apply topically every 12 (twelve) hours. 021 Active Aspirin Low Dose 81 MG chewable tablet Chew 1 tablet 1 (one) time each day. 023 Active Blood Glucose Monitoring Suppl (KanocoTouch Verio) w/Device kit Use to test blood glucose 023 Active Continuous Blood Gluc [employer] (FreeStyle Moira 2 [place]) device 1 Units 3 times daily. 1 each 023 Active Hot/Cold Therapy Aids (Hot & Cold Wrap [place] Plus) padsIndications :Acute pain of left knee 1 each 3 times daily. 1 each 023 Active empagliflozin (Jardiance) 25 MGIndications:T ype 2 diabetes mellitus with hyperglycemia, without long-term current use of insulin ([facility]) TAKE 1 TABLET BY MOUTH EVERY MORNING 90 tablet 1 023 Active metFORMIN (Glucophage) 1000 MG tablet TAKE 1 TABLET (1,000 MG) BY MOUTH EVERY 12 (TWELVE) HOURS. 60 tablet 023 Active nitroglycerin (Nitrostat) 0.[address] 1 tablet (0.4 mg) under the tongue if needed for chest pain. 90 tablet Active verapamil SR (Calan SR) 120 MG ER tablet TAKE 1 TABLET (120 MG) BY MOUTH EVERY 12 (TWELVE) HOURS. 60 tablet 1 Active chlorthalidone (Hygroton) 25 MG tabletIndicatio ns:Primary hypertension TAKE 1 TABLET (25 MG) BY MOUTH IN THE MORNING. 30 tablet Active lisinopril 40 MG tablet Take 1 tablet (40 mg) by mouth Once per day. 90 tablet 3 024 2024 Active rosuvastatin (Crestor) 40 MG tablet Take 1 tablet (40 mg) by mouth Once per day. 90 tablet 3 2024 Active amLODIPine (Norvasc) 10 MG tabletIndicatio ns:Primary hypertension Take 1 tablet (10 mg) by mouth Once per day. 90 tablet 3 024 2024 Active insulin pen needle (Comfort EZ Pen [place]) 32G x 4 mm miscIndications :Type 2 diabetes mellitus without complication, with long-term current use of insulin ([facility]) USE TO INJECT TWICE DAILY 100 each 10 Active NovoLOG FLEXPEN 100 UNIT/ML pen See Instructions, Take based on sliding scale between 4- 14 units via Subcutaneous Injection 3 times a day. E11.9 Max daily dose 42 units., # 30 mL, 6 Refills, Maintenance, 01/04/23 15:50:00 EDT, [facility], Partial fill upon patie... Active omeprazole (PriLOSEC) [address] capsule Active Continuous Glucose Sensor (FreeStyle Moira 2 Sensor) [facility] Active glucose blood test strip See Instructions, # 150 each, Refills 5, Tot. Refills 5, Maintenance, Use to check BGs 4x dialy. E11.9, 05/29/23 16:24:00 EST, Supply, 158, cm, 01/04/23 15:06:00 EDT, Height, 72.2, kg, 09/10/22 0:26:00 EDT, Dry Weight 024 Active Dulaglutide 4.5 MG/0.5ML solution auto-injectorIn dications:Exace rbation of asthma, unspecified asthma severity, unspecified whether persistent Inject 0.5 mL (4.5 mg) under the skin 1 (one) time per week. 2 mL 2 024 Active Acetaminophen Extra Strength 500 MG tablet TAKE 2 TABLETS BY MOUTH EVERY 12 HOURS IF NEEDED FOR PAIN 120 tablet 1 025 Active Lantus SoloStar 100 UNIT/ML pen Inject 15 Units under the skin Once per day. 025 Active albuterol (2.5 MG/3ML) 0.083% nebulizer solution INHALE 3ML BY NEBULIZATION ROUTE EVERY 4 HOURS IF NEEDED FOR WHEEZING 75 mL 11 025 Active clopidogrel (Plavix) 75 MG tablet TAKE 1 TABLET BY MOUTH EVERY DAY 90 tablet 025 Active diclofenac (Voltaren) 75 MG EC tablet TAKE 1 TABLET BY MOUTH TWICE DAILY FOR PAIN. 60 tablet 025 Active Alcohol Swabs (Comfort Touch Alcohol Prep) 70 % pads Apply 1 Units topically 3 times daily. USE BY TO SKIN ROUTE 2 TIMES EVERY DAY 100 each 025 Active albuterol 108 (90 Base) MCG/ACT inhaler INHALE 2 PUFFS EVERY 4 (FOUR) HOURS IF NEEDED FOR WHEEZING. 8.5 g 1 025 Active budesonide-form oterol (Symbicort) 160-4.5 MCG/ACT inhaler INHALE 2 PUFFS BY MOUTH IN THE MORNING AND AT BEDTIME. RINSE MOUTH WITH WATER AFTER USE TO REDUCE AFTERTASTE AND INCIDENCE OF CANDIDIASIS. DO NOT SWALLOW. 10.2 g 1 025 Active ibuprofen 400 MG tablet Take 1 tablet (400 mg) by mouth every 6 (six) hours if needed for moderate pain or fever for up to 30 doses. 30 tablet 025 Active Alcohol Swabs (Comfort Touch Alcohol Prep) 70 % pads APPLY 1 UNITS TOPICALLY 3 TIMES DAILY. USE BY TO SKIN ROUTE 2 TIMES EVERY DAY 100 each 10 024 2024 Discontinued(R eorder (will not trigger notification to Pharmacy)) albuterol 108 (90 Base) MCG/ACT inhaler INHALE 2 PUFFS EVERY 4 (FOUR) HOURS IF NEEDED FOR WHEEZING. 8.5 g 1 025 2024 Discontinued budesonide-form oterol (Breyna) 160-4.5 MCG/ACT inhaler Inhale 2 puffs in the morning and at bedtime. Rinse mouth with water after use to reduce aftertaste and incidence of candidiasis. Do not swallow. 1 each 1 025 2024 Discontinued Active Problems Problem Noted Date Diagnosed Date Open angle with borderline findings, low risk Snoring 06/24/2023 Primary central sleep apnea 06/24/2023 Assessment & Plan (06/24/2023 11:41 AM EDT): Will send for sleep study Patient stop bang score 4 points Screening for colon cancer 05/06/2023 Assessment & Plan (05/06/2023 9:00 AM EST): Will refer to gi for screening colonoscopy Class 1 obesity 10/26/2022 Disease due to severe acute respiratory syndrome coronavirus 2 (SARS-CoV-2) 10/26/2022 Pulmonary nodule 10/26/2022 CAD (coronary artery disease) 08/09/2022 Diabetes 08/09/2022 Assessment & Plan (05/06/2023 8:58 AM EST): Followed by endocrinology, on lantus, trulcity, metformin and jardiance, Will place eye referal Assessment & Plan (12/11/2022 12:45 PM EDT): Not monitoring her glucose, refers out of strips, will send new ones, also she should be on insulin which she has not used since last visit due to lack of syringes, order were placed 09/28. She should also be taking jardiance 25, las refill done on 11/02, refers taking it from a family member. Will place order for new a1c, follow up with endocrinology Assessment & Plan (09/25/2022 7:00 PM EDT): Uncontrolled, she should be takign metformin 1000mg bid, jardiance 25mg daily, trulicity 4.5mg and humulin n, will switch humulin n to lantus 15 units, will follow up in 1 month Will send rx for freestyle moira. Will place endocrinology referal Assessment & Plan (08/23/2022 12:16 PM EDT): Uncontrolled, reviewed with patient her DM medications, will increase trulicity to 4.5 weekly, will follow up in 1 month - Assessment & Plan (08/09/2022 1:07 PM EDT): Kena lost follow up with endocrinology, provided phone number to reschedule appointment, she is on humulin, metformin, jardiance and trulicity Cerebrovascular accident (CV A) due to stenosis of right vertebral artery 03/02/2021 Assessment & Plan (10/29/2022 6:25 AM EDT): Cont Rosuvastatin Cont PT Need to lower vascular risk factors given CAD/PR and CVA x 2 Blood pressure uncontrolled Assessment & Plan (09/25/2022 6:50 PM EDT): Patient started taking rosuvastatin which she has tolerated, pending neurology follow up. Patient is receiving home physical therapy Assessment & Plan (08/09/2022 1:04 PM EDT): Patient lost neurology follow up, will place new referal History of hysterectomy for benign disease 09/02 Severe persistent asthma 09/02/2018 Assessment & Plan (09/25/2022 6:50 PM EDT): Will renew asthma medications, told to follow up with pneumologist Chronic back pain 04/16/2018 Assessment & Plan (08/09/2022 1:06 PM EDT): Will renew diclofenac, told to continue with tylenol, no neurologic deficit Hypertension 04/16/2018 Assessment & Plan (05/06/2023 8:55 AM EST): Patient not monitoring her bloods pressure at home, reinforced importance of maitaining a diary, bp target <130/80, Assessment & Plan (10/29/2022 6:26 AM EDT): Not controlled, she should be taking lisinopril 40mg, chlorthalidone 25mg, verapamil 120mg BID and amlodipine 5mg (unclear why the dual CCB?) She endorses compliance with these medications Will increase Amlodipine to 10mg daily consider medbox? She says she had cardiology appointment in three weeks Will make followup at PCP office for BP check Assessment & Plan (09/25/2022 6:53 PM EDT): Not controlled, she should be taking lisinopril 40mg, chlorthalidone 25mg, verapamil and amlodipine 5mg, will increase amlodipine dose to 10mg, follow up in 1 month. Told to schedule follow up with cardiology Assessment & Plan (08/23/2022 12:14 PM EDT): Elevated, she did not brought her bp log or medications, refers did not took her meds this morning, will follow up in 1 month, target<130/80 Assessment & Plan (08/09/2022 1:09 PM EDT): Patient lost cardiology follow up, told to reschedule appointment, bp monitor will be sent, she is not checking her bp Gastroesophageal reflux disease 04/16/2018 Hyperlipidemia 04/16/2018 Assessment & Plan (09/25/2022 6:55 PM EDT): Tolerating rosuvastatin Assessment & Plan (08/23/2022 12:18 PM EDT): Not controlled, she is not taking atorvastatin 80mg, reinforced importnce of medication adherence Assessment & Plan (08/09/2022 1:14 PM EDT): Will place new labs order for guidance of threrapy Mood disorder 04/16/2018 Atypical chest pain 04/16/2018 Encounters Date Type Department Care Team Description 09/02/2024 11:00 AM EDT Office Visit [facility] [address] [place] [address] Maximiliano Fields MD Acute right-sided low back pain with right-sided sciatica (Primary Dx); Right thigh pain; Hypertension, unspecified type 09/02/2024 Travel 08/12/2024 Refill [facility] [address] [place] [address] Amando Chapa MD 08/07/2024 Refill [facility] [address] [place] [address] Amando hCapa MD 08/06/2024 Refill [facility] [address] [place] [address] Amando Chapa MD 07/27/2024 Refill [facility] [address] [place] [address] Jaye Olivo MD from Last 3 Months Immunizations Immunization Administration Dates Next Due Hep B, adult 10/08/2018,09/02/2018 Influenza injectable quadriv alent IIV4 with preservative 02/24/2018 Influenza injectable quadrivalent preservative f ree 01/29/2022,03/31/2021 Influenza, IIV3, injectable 02/24/2018 Pfizer Covid-19 Vaccine 12+ 06/01/2021, Pneumococcal Polysaccharide PPSV23 04/16/2018 Tdap 04/16/2018 Family History Medical History Relation Name Comments Colon cancer Sister Relation Name Status Comments Sister Social History Tobacco Use Types Packs/Day Years Used Date Smoking Tobacco: Never Passive Smoke Exposure: Never Smokeless Tobacco: Never Tobacco Cessation:Counseling Given: Not Answered Alcohol Use Standard Drinks/Week Comments Never 0 [...] Orientation Straight 02/12/2022 10 :34 AM EDT Last Filed Vital Signs Vital Sign Reading [...] 6.4 oz) 09/02/2024 11:31 AM EDT Height 157.5 cm (5' 2 ) 05/15/2024 9:14 AM EST Body Mass Index 29.89 05/15/2024 9:14 AM EST Plan of Treatment Upcoming Encounters Date Type Department Care Team (Late st Contact Info) Description 09/16/2024 2:30 PM EDT Clinical Support [facility] [address] [place] [address] Health Maintenance Due Date Last Done Comments CT Colonography 1970 Colonoscopy 1970 Colorectal Cancer Screening 1970 Dental Oral Exam 1970 Dental Prophylaxis 1970 FIT DNA/Cologuard 1970 FIT 1970 FOBT 1970 Sigmoidoscopy 1970 Disability Screening 1970 Diabetes: Foot Exam 1980 Alcohol/Substance Use Screening 1982 Mammogram 2010 Hepatitis B Vaccines (3 of 3 - 19+ 3-dose series) 03/05/2019 10/08/2018, 09/02/2018 Pneumococcal Vaccine: 50+ Years (2 of 2 - PCV) 04/16/2019 04/16/2018 Zoster Vaccines (1 of 2) 2020 Depression Screening 08/10/2023 08/09/2022, 08/10/19 23 Lipid Panel 08/22/2023 08/21/2022, 01/13, 01/26/2021, Additional history exists Diabetes: Urine Protein Screening 08/24/2023 08/23/2022, 01/29/2022, 01/26/2021, Additional history exists Dental X-Ray: Bitewings 08/29/2023 08/27/2022 COVID-19 Vaccine ( season) 2023 06/01/2021, 05/11/2021 Influenza Vaccine (#1) 2023 , 03/31/2021, 02/24/2018, Additional history exists Eye Exam 06/16/2024 06/17/2023, 03/0 07/2023, 06/17/2023, Additional history exists Diabetes: Hemoglobin A1C 08/12/2024 025, 03/24/2024, 08/21/2022, Additional history exists SDOH Screening 01/16/2025 01/17/2024 Dental X-Ray: Full Mouth 08/28/2025 08/27/2022 Tobacco Screening 09/02/2025 09/02/2024 DTaP/Tdap/Td Vaccines (2 - Td or Tdap) 04/16/2028 04/16/2018 RSV Patients and Patients Aged 60 years or older (1 - 1-dose 75+ series) 2045 HIV Screening Completed 08/21/2022 Hepatitis C Screening Completed 08/21/2022, 022 Cervical Cancer Screening Discontinued HPV/Cotest Discontinued 09/18/2022 Pap Smear Discontinued 09/18/2022 HIB Vaccines Aged Out No longer eligi [...] patient's age to complete this topic Meningococcal Vaccine Aged Out No rick gricelda eligible based on patient's age to complete this topic RSV under 20 months Aged Out No longe r eligible based on patient's age to complete this topic Rotavirus Vaccines Aged Out No longer eligible based on patient's age to complete this topic Procedures Procedure Name Priority Date/Time Associated Diagnosis Comments POCT GLYCATED HEMOGLOBIN, TOTAL Routine 05/15/2024 9:37 AM EST Type 2 diabetes mellitus with hyperglycemia, with long-term current use of insulin (CMS/HCC) IMAGE-GUIDED PAP W/AGE BASED SCR PROTOCOLS Routine 09/18/2022 1:56 PM EDT Cervical cancer screening INTRAORAL - COMPLETE SERIES OF RADIOGRAPHIC IMAGES Routine 08/27/2022 10:00 AM EDT ALBUMIN, RANDOM URINE W/O CREATININE Routine 08/23/2022 11:24 AM EDT Type 2 diabetes mellitus with hyperglycemia, with long-term current use of insulin (CMS/HCC) HEPATITIS C AB W/REFL TO HCV RNA, QN, PCR Routine 08/21/2022 9:10 AM EDT Essential hypertension Type 2 diabetes mellitus with hyperglycemia, with long-term current use of insulin (CMS/HCC) Mixed hyperlipidemia HIV 1 RNA, QN PCR W/RFL JORGE (RTI,PI,INTEGRASE) Routine 08/21/2022 9:10 AM EDT Essential hypertension Type 2 diabetes mellitus with hyperglycemia, with long-term current use of insulin (CMS/HCC) Mixed hyperlipidemia LIPID PANEL, STANDARD Routine 08/21/2022 9:10 AM EDT Essential hypertension Type 2 diabetes mellitus with hyperglycemia, with long-term current use of insulin ([facility]) Mixed hyperlipidemia from Last 3 Months or Most Recently Relevant to Health Maintenance Results * (ABNORMAL) POCT HGB A1C (05/15/2024 9:37 AM EST) Hemoglobin A1C 8.8(A) 4.0 - 6.0 % QC Media Lot # [id number] Lot# Expiration Date ,[id number] Blood 05/15/2024 9:37 AM EST Cassandra Isabel MD POINT OF CARE TEST ENTER/EDIT ORDERABLES Final Result * Image-Guided Pap with Age-Based Screening Protocols (09/18/2022 1:56 PM EDT) Comment [facility] Comment: This order for age-based cervical cancer and STI screening follows ACOG guidelines(PB 168, 140, NOB847). See individual assays for performing site location. Clinical Information: HYST FOR UNKNOWN INDICATION [employer] [facility] LMP: NONE GIVEN [facility] Prev. PAP: NONE GIVEN [facility] Prev. BX: NONE GIVEN [facility] SOURCE: VAGINAL LINO [facility] Statement Of Adequacy: [employer] Comment: Satisfactory for evaluation. Endocervical/transformation zone component absent. Interpretation/ Result: Negative for intraepithelial lesion or malignancy. [employer] [facility] COMMENT: This Pap test has been evaluated with computer assisted technology. [employer]: [employer] [facility] Comment: BLC,CT(ASCP) CT screening location: [address] ??[id number] (Always Message) [facility] Comment: EXPLANATORY NOTE: The Pap is a screening test for cervical cancer. It is not a diagnostic test and is subject to false negative and false positive results. It is most reliable when a satisfactory sample, regularly obtained, is submitted with relevant clinical findings and history, and when the Pap result is evaluated along with historic and current clinical information. HPV nRNA E6/E7 Not Detected Not Detected [employer] [place] [employer] Comment: Methodology: Polisher Balance Screwhead-Mediated Amplification This assay detects E6/E7 viral messenger RNA (mRNA) from 14 high-risk HPV types (16,18,31,33,35,39,45,51,52,56,58,59,66,68). Cervical sources are required for HPV testing. If a vaginal source from a patient who has had a total hysterectomy with removal of cervix was submitted, please contact the testing laboratory for alternative testing options. For additional information, please refer to http://education.[employer]/faq/YQK093r7 (This link if provided for information/ educational purposes only.) Pap Vial 09/18/2022 1:56 PM EDT 09/19/2022 9:46 AM EDT Dinorah Carrion [facility] LAB BLOOD ORDERABLES Siomara l Result [facility] [address], [place] [address] [employer] [place] [employer] [place] [address] [place] [address] * Albumin, Random Urine W/O Creatinine (08/23/2022 11:24 AM EDT) Albumin, Urine 3.9 See Note: mg/dL [employer] [place] [employer] Comment: Reference Range: Reference Range Not established NICK [facility] [place] [employer] [place] Comment: The ADA defines abnormalities in albumin excretion as follows: Albuminuria Category ? Result (mcg/mg creatinine) Normal to Mildly increased ?<30 Moderately increased ?30-299 Severely increased ?> OR = 300 The ADA recommends that at least two of three specimens collected within a 3-6 month period be abnormal before considering a patient to be within a diagnostic category. Urine Urine specimen obtained by clean catch procedure / Unknown 08/23/2022 11:24 AM EDT 08/23/2022 11:25 AM EDT Amando Vu MD LAB URINE ORDERABL ES Final Result Performing Organization Address [facility] de Phone Number [facility] [address], [place] [address] [employer] [place] [employer] [address] [place] [address] * HIV-1 RNA, Quantitative, Real-Time PCR with Reflex to Genotype (RTI, PI, Integrase) (08/21/2022 9:10 AM EDT) HIV 1 RNA, QN PCR NOT DETECTED copies/mL [employer], HIV 1 RNA, QN PCR NOT DETECTED Log copies/mL [facility], Comment: REFERENCE RANGE: NOT DETECTED copies/mL ?NOT DETECTED ??Log copies/mL This test was performed using Real-Time Polymerase Chain Reaction. Reportable range is 20 to 10,000,000 copies/mL (1.30-7.00 Log copies/mL). 08/21/2022 9:10 AM EDT 08/21/2022 9:10 AM EDT Narrative [facility] - 08/23/2022 8:25 PM EDT FASTING:NO FASTING: NO Amando Vu MD LAB BLOOD ORDERABL ES Final Result Performing Organization Address [facility] Co de Phone Number [facility] [address], [place] [address] [employer]/[facility], [address] [place] [address] * Hepatitis C Antibody with Reflex to HCV, RNA, Quantitative, Real-Time PCR (08/21/2022 9:10 AM EDT) Hepatitis C Antibody NON-REACT OVI NON-REACT OVI [employer] [place] [employer] Index 0.07 <1.00 [employer] [place] [employer] [place] Comment: HCV antibody was non-reactive. There is no laboratory evidence of HCV infection. In most cases, no further action is required. However, if recent HCV exposure is suspected, a test for HCV RNA (test code 66852) is suggested. For additional information please refer to http://O4IT.[employer]/faq/DUW91a0 (This link is being provided for informational/ educational purposes only.) Blood Venous blood specimen / Unknown 08/21/2022 9:10 AM EDT 08/21/2022 9:10 AM EDT Narrative [facility] - 08/23/2022 8:25 PM EDT FASTING:NO FASTING: NO Amando Vu MD LAB BLOOD ORDERABL ES Final Result [address], [place] [address] [facility] [address] [place] [address] * (ABNORMAL) Lipid Panel, Standard (08/21/2022 9:10 AM EDT) [facility] Signature Cholesterol, Total 198 <200 mg/dL [employer] HDL Cholesterol 40(L) > OR = 50 mg/dL [employer] [place] [employer] [place] Triglycerides 119 <150 mg/dL [employer] [place] [employer] [place] LDL Cholesterol 135(H) mg/dL (calc) [employer] [place] [employer] [place] Comment: Reference range: <100 Desirable range <100 mg/dL for primary prevention; ?? <70 mg/dL for patients with CHD or diabetic patients with > or = 2 CHD risk factors. LDL-C is now calculated using the Charlie-Birgit calculation, which is a validated novel method providing better accuracy than the Friedewald equation in the estimation of LDL-C. Charlie GIL et al. MONTEZ. 2013;310(19): 0180-0990 (http://O4IT.[employer]/faq/ZJX573) Chol/HDLC Ratio 5.0(H) <5.0 (calc) [facility] Non-HDL Cholesterol 158(H) <130 mg/dL (calc) [facility] Comment: For patients with diabetes plus 1 major ASCVD risk factor, treating to a non-HDL-C goal of <100 mg/dL (LDL-C of <70 mg/dL) is considered a therapeutic option. Blood Venous blood specimen / Unknown 08/21/2022 9:10 AM EDT 08/21/2022 9:10 AM EDT Narrative [facility] - 08/23/2022 8:25 PM EDT FASTING:NO FASTING: NO Amando Vu MD LAB BLOOD ORDERABL ES Final Result [facility] [address], [place] [address] [employer] [place] [employer] [place] [address] [place] [address] from Last 3 Months or Most Recently Relevant to Health Maintenance Insurance [facility] < [address] [facility] Care Teams Retail Product Demo Specialist Relationship Specialty Start Date End Date CaroAmando Yang MD [address] [place] [address] PCP - General Internal Medicine 09/08/19
--- OUTSIDE RECORDS SUMMARY | 2024-09-02 14:49 | XMS_ITS | Encounter Summary ---
Author Organization [employer] Address [address] [facility] 7 [place] [address] Care Team Providers Care Conference Assistant Name Role Phone Amando Chapa MD Primary Care Prov ider Reason for Visit * Reason Comments Med Refill Encounter Details Date Type Department Care Team ([facility] Contact Info) Description 03/18/2024 Refill [facility] [address] [place] [address] Amando Chapa MD [address] [place] [address] Social History Tobacco Use Types Packs/Day Years [...] Upcoming Encounters Date Type Department Care Team ([facility] st Contact Info) Description 09/16/2024 2:30 PM EDT Clinical Support [facility] [address] [place] [address] documented as of this encounter Visit Diagnoses Not on filedocumented in this encounter Additional Health Concerns Assessment Noted Time PHQ-9 Depression Total Score: 7 08/10/19 23 10:51 AM EDT documented as of this encounter Care Teams Conference Assistant Relationship Specialty Start Date End Date Amando Chapa MD [address] [place] [address] PCP - General Internal Medicine 09/08/19 documented as of this encounter
== END 2024-09-02 14:39 | disposition home or self-care (01) ==
LOC: HO.US 14:38
PROVIDERS: PCP Emergency Medicine; Visit Provider Emergency Medicine
DX: M54.41 Lumbago with sciatica, right side (principal); M79.651 Pain in right thigh
CPT/HCPCS: 72100; 93971

== ENCOUNTER → 2024-09-02 15:01 | Outpatient (BNV) | payer OTHER, SELFPAY | PROVIDERS: PCP Emergency Medicine; Visit Provider Radiology Diagnostic Radiology | DX: M79.651 Pain in right thigh (principal); M54.50 Low back pain, unspecified | CPT/HCPCS: 72100; 93971 ==